=== PATIENT | female | born 1955 | race American Indian/Alaskan Native ===

== ENCOUNTER 2017-01-09 13:51 | Emergency (ER) | payer MEDICARE, OTHER ==
[2017-01-09 13:51] VITALS: BMI 37.2
[2017-01-09 13:57] VITALS: RESP 16
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
[2017-01-09 18:50] VITALS: BP 149/89; PULSE 70; TEMP 98.4
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
[2017-01-11 09:48] VITALS: O2SAT 98
== END 2017-01-09 18:49 | disposition home or self-care (01) ==
LOC: H.ER 13:51
DX: R51 Headache (principal); M54.2 Cervicalgia; M25.511 Pain in right shoulder; M54.5 Low back pain; R07.82 Intercostal pain; V43.62XA Car passenger injured in collision with other type car in traffic accident, initial encounter; Y92.410 Unspecified street and highway as the place of occurrence of the external cause

== ENCOUNTER 2017-05-07 20:10 | Emergency (ER) | payer MEDICARE, OTHER ==
[2017-05-07 20:11] VITALS: BMI 37.2
[2017-05-07 20:23] VITALS: BP 156/98; PULSE 84; RESP 18; TEMP 99; O2SAT 100
--- NOTE | 2017-05-07 20:53 | ED PDOC ---
Lower Extremity Pain/Injury Time Seen by Provider: 05/07/17 20:28 Chief Complaint (Nursing): Lower Extremity Problem/Injury Chief Complaint (Provider): Left glute pain History Per: Patient History/Exam Limitations: no limitations Onset/Duration Of Symptoms: Days (x 2) Current Symptoms Are (Timing): Still Present Additional Complaint(s): Cheri is a 61 y/o female who presents to the ED complaining of left glute pain , ongoing for 2 days. Pain is non-radiating and impedes her ability to walk. No further medical complaints. PMD: Shakila Mayorga Past Medical History Reviewed: Historical Data, Nursing Documentation, Vital Signs Vital Signs: Last Vital Signs Temp 99 F 05/07/17 20:20 Pulse 84 05/07/17 20:20 Resp 18 05/07/17 20:20 BP 156/98 H 05/07/17 20:20 Pulse Ox 100 05/07/17 20:20 - Medical History PMH: Diabetes, HTN, Hypercholesterolemia - Surgical History Surgical History: Cholecystectomy - Family History Family History: States: Unknown Family Hx - Social History Current smoker - smoking cessation education provided: No Alcohol: None Drugs: Denies - Home Medications Home Medications: Ambulatory Orders Medication Instructions Recorded Aspirin [Aspirin Adult Low 81 mg PO DAILY 11/03/13 Strength] Atorvastatin [Lipitor] 20 mg PO DAILY 11/03/13 Brimonidine Tartrate/Timolol 5 ml OU BID 11/03/13 [Combigan 0.2%-0.5% 5 ml] Dorzolamide Hydrochloride 10 ml OU DAILY 11/03/13 [Dorzolamide Hydrochloride 10 ml] Hydrochlorothiazide 25 mg PO DAILY 11/03/13 Metoprolol Succinate 100 mg PO DAILY 11/03/13 Lidocaine 2% Viscous 10 ml MM Q4H PRN #1 bottle 12/15/15 Naproxen 500 mg PO Q12H PRN #20 ect 05/07/17 - Allergies Allergies/Adverse Reactions: Allergies Allergy/AdvReac Type Severity Reaction Status Date / Time No Known Allergies Allergy Verified 11/03/13 10:41 Review of Systems ROS Statement: Except As Marked, All Systems Reviewed And Found Negative Musculoskeletal: Positive for: Other (Left glute pain) Physical Exam - Reviewed Nursing Documentation Reviewed: Yes Vital Signs Reviewed: Yes - Physical Exam Appears: Positive for: Non-toxic, No Acute Distress Head Exam: Positive for: ATRAUMATIC, NORMAL INSPECTION, NORMOCEPHALIC Skin: Positive for: Normal Color (No abrasion, ecchymosis or lesions in area of pain), Warm, Dry Eye Exam: Positive for: Normal appearance ENT: Positive for: Normal ENT Inspection Neck: Positive for: Normal, Painless ROM Respiratory: Negative for: Accessory Muscle Use, Respiratory Distress Extremity: Positive for: Normal ROM, Tenderness (To the left buttock), Capillary Refill (< 2 sec) Neurologic/Psych: Positive for: Alert, Oriented. Negative for: Motor/Sensory Deficits - ECG O2 Sat by Pulse Oximetry: 100 (RA) Pulse Ox Interpretation: Normal Medical Decision Making Medical Decision Making: Time: 20:51 Initial Impression: Sciatica Initial Plan: --Toradol 30 mg IM Flexeril --Pending reevaluation Pt reports feeing better on re-evaluation. Pt has flexeril 5mg at home. Scribe Attestation: Documented by Maria Girard, acting as a scribe for Deepti Dahl PA-C Provider Scribe Attestation: All medical record entries made by the Scribe were at my direction and personally dictated by me. I have reviewed the chart and agree that the record accurately reflects my personal performance of the history, physical exam, medical decision making, and the department course for this patient. I have also personally directed, reviewed, and agree with the discharge instructions and disposition. Disposition - Clinical Impression Clinical Impression: Sciatica - Patient ED Disposition Is Patient to be Admitted: No - Disposition Disposition: Routine/Home Disposition Time: 22:40 Condition: GOOD Prescriptions: Naproxen 500 mg PO Q12H PRN #20 ect PRN Reason: pain, inflammation Instructions: Sciatica (ED)
== END 2017-05-07 23:01 | disposition home or self-care (01) ==
LOC: H.ER 20:10
DX: M54.30 Sciatica, unspecified side (principal)
CPT/HCPCS: 96372; 99283; J1885

== ENCOUNTER 2017-12-02 08:51 | Day surgery (SDC) | payer MEDICARE, OTHER ==
[2017-10-27 08:23] VITALS: BMI 26.5
[2017-12-02] MEDS ORDERED: Lactated Ringer's 500 ML IV ONE (09:43)
[2017-12-02] MEDS ORDERED: Lidocaine PF 2% (5 ml) Inj (For Cardiac Arrhy) IV ONE (10:32)
[2017-12-02] MEDS ORDERED: Propofol 10 mg/ml Inj (20 ML) ONE (10:32)
[2017-12-02] MEDS ORDERED: Midazolam 2 MG/2 ML VIAL ONE (10:32)
[2017-12-02 11:43] VITALS: TEMP 97
[2017-12-02 11:58] VITALS: BP 137/83; PULSE 71; RESP 20; O2SAT 100
== END 2017-12-02 12:00 | disposition home or self-care (01) ==
LOC: H.ENDO 08:51
PROVIDERS: ATTEND Internal Medicine Gastroenterology
DX: Z12.11 Encounter for screening for malignant neoplasm of colon (principal); Z86.73 Personal history of transient ischemic attack (TIA), and cerebral infarction without residual deficits; E11.9 Type 2 diabetes mellitus without complications; E78.5 Hyperlipidemia, unspecified; I10 Essential (primary) hypertension; K64.8 Other hemorrhoids
CPT/HCPCS: 45378; J2250; J2704; J7120

== ENCOUNTER 2018-12-01 11:16 | Day surgery (SDC) | payer MEDICARE, OTHER ==
[2018-12-01] MEDS ORDERED: Lactated Ringer's 1,000 ML IV ONE (12:20)
[2018-12-01] MEDS ORDERED: Mepivacaine HCl 2% (20ml) Inj ONE (13:42)
[2018-12-01] MEDS ORDERED: Hyaluronidase 200 UNITS/ML VIAL ONE (13:43)
[2018-12-01 13:49] VITALS: BMI 35.2
[2018-12-01] MEDS ORDERED: Bupivacaine HCl 0.5% PF (30 ml) Inj ONE (13:52)
[2018-12-01] MEDS ORDERED: Midazolam 2 MG/2 ML VIAL ONE ×2 (14:01→15:28)
[2018-12-01] MEDS ORDERED: Phenylephrine 10 mg/ml Inj ONE (14:21)
[2018-12-01] MEDS ORDERED: Povidone Iodine 5% Opht SOLUTION OS ONE (14:25)
[2018-12-01] MEDS ORDERED: Carbachol 0.01% IO ONE (14:40)
[2018-12-01] MEDS ORDERED: Mannitol 12.5 gm/50 ml Inj IV ONE (14:55)
[2018-12-01] MEDS ORDERED: HYDROmorphone 0.5 mg/0.5 ml ISec IVP PRN (15:29)
[2018-12-01] MEDS ORDERED: BSS 15 ML SOL IR ONE (15:32)
[2018-12-01 16:54] VITALS: RESP 18
[2018-12-01 18:14] VITALS: O2SAT 98
[2018-12-01 18:57] VITALS: BP 175/90; PULSE 84; TEMP 97.5
--- NOTE | 2018-12-02 07:45 | OP ---
PROCEDURE DATE: 12/01/ SURGEON: NICOLASA GREEN MD ANESTHESIOLOGIST: ANEL VALERA MD ; RACHEL IGNACIO MD ANESTHESIA: LOCAL / IV SEDATION PREOPERATIVE DIAGNOSIS: UNCONTROLLED GLAUCOMA LEFT EYE POSTOPERATIVE DIAGNOSIS: SAME OPERATION: TRABECULECTOMY OF THE LEFT EYE. PREPARATION AND PROCEDURE: The patient was brought to the Operative Suite and after facial akinesia and retrobulbar block were induced, the patient was prepped and draped in the usual manner for sterile ophthalmic surgery. A wire- lid speculum was placed through the belly of the superior rectus muscle for fixation of the globe. At 6 mm posterior to the 12 o'clock position of the cornea, a curvilinear peritomy was performed through bulbar conjunctiva and Tenon's capsule for 8 degrees. The conjunctiva, Tenon's capsule and subconjunctival tissue were reflected anteriorly over the cornea with blunt and sharp dissection using a Tooke knife. Hemostasis was obtained using bipolar cautery. When this was obtained satisfactorily, a 5 mm lamellar scleral triangle was fashioned at the base of the triangle at the surgical sulcus. A #75 medium Neosho blade was employed to delineate the size of the triangular flap. This was done to one half depth of the sclera. The apex of the flap was elevated using a 0.12 micro-forceps and the lamellar flap was initiated with the #75 medium Neosho blade. At this point, the #66 Neosho blade was employed to continue and terminate the lamellar scleral flap which was done satisfactorily through the surgical sulcus. With the flap being held vertically and a fresh #75 medium Neosho blade employed, a horizontal incision from one end to the other at the base of the flap was fashioned through the trabecular meshwork into the anterior chamber. The peripheral iris was noted to prolapse satisfactorily into the wound and a large peripheral iridectomy was fashioned at this time. The iris was noted to retract back into the anterior chamber satisfactorily. A section of the trabecular meshwork and scleral spur measuring 5 mm X 5 mm was excised using a Vannas scissor and 0.12 forceps. This was submitted to Pathology for examination. A #8-0 Vicryl suture was placed at the apex of the flap and this was secured. The anterior chamber was reformed using balanced salt solution and Miochol was instilled into the anterior chamber for pupillary myosis. The pupil was found to constrict and to be round. The conjunctival peritomy and Tenon's capsule were closed in continuous fashion using a #8-0 chromic suture. This was done satisfactorily and no wound leaks were noted. Twenty mg of A-metha was injected through the lower lid into the subtenon. The #4-0 superior rectus suture was removed. Maxitrol drops were applied into the eye. A patch and shield were applied. POSTOPERATIVE CONDITION: The patient was brought to the Post anesthesia Recovery area with stable vital signs. DNICOLASA DONNELLY MD
== END 2018-12-01 19:00 | disposition home or self-care (01) ==
LOC: H.OPSURG 11:16
PROVIDERS: ATTEND Ophthalmology
DX: H40.9 Unspecified glaucoma (principal); E11.9 Type 2 diabetes mellitus without complications; E78.5 Hyperlipidemia, unspecified; I10 Essential (primary) hypertension
CPT/HCPCS: 66170; 82948; J0690; J2150; J2250; J2370; J3010; J3470; J7030; J7120; J9280